=== PATIENT | female | born 1995 | race Two or more races ===

== ENCOUNTER 2021-01-22 15:38 | Observation (INO) | payer SELFPAY ==
[2021-01-22] MEDS ORDERED: IV RINGERS,LACTATED 1000ML 1,000 ML IV PRN (16:15)
[2021-01-22 16:29] LABS: BILIRUBIN,URINE NEGATIVE (NEG); CLARITY,URINE CLEAR; COLOR,URINE YELLOW; NITRITE,URINE NEGATIVE (NEG); PH,URINE 6.5 (<5.0-8.0); PROTEIN,URINE NEGATIVE (NEG-TRACE); UROBILINOGEN,URINE 0.2 mg/dL (0.2 mg/dL)
[2021-01-22 16:50] LABS: BACTERIA,URINE FEW /HPF (0-FEW)
[2021-01-22 16:51] LABS: RBC,URINE 0 /HPF (0-2)
== END 2021-01-22 17:30 | disposition home or self-care (01) ==
LOC: 3 SO LND 15:38
PROVIDERS: ADMIT Obstetrics & Gynecology; ATTEND Obstetrics & Gynecology
DX: O26.892 Other specified pregnancy related conditions, second trimester (principal); R10.9 Unspecified abdominal pain; Z3A.24 24 weeks gestation of pregnancy
CPT/HCPCS: 59025; 81001; G0378; G0379

== ENCOUNTER 2021-05-21 23:56 | Inpatient (IN) | payer SELFPAY ==
[~2021-05-21] VITALS: Ht 160 cm; Wt 75.1 kg
[2021-05-22] MEDS ORDERED: IV RINGERS,LACTATED 1000ML 1,000 ML IV PRN (00:30)
[2021-05-22 01:47] LABS: BILIRUBIN,URINE NEGATIVE (NEG); CLARITY,URINE CLOUDY; COLOR,URINE YELLOW; NITRITE,URINE NEGATIVE (NEG); PH,URINE 6.5 (<5.0-8.0); PROTEIN,URINE NEGATIVE (NEG-TRACE)
[2021-05-22 01:51] LABS: BACTERIA,URINE MANY /HPF (0-FEW); RBC,URINE OCC /HPF (0-2); WBC,URINE 20-40 /HPF (0-4)
[2021-05-22] MEDS ORDERED: BUTORPHANOL 2 MG/ML VIAL. IVP PRN ×2 (02:45)
[2021-05-22] MEDS ORDERED: 0.9 % SODIUM CHLORIDE 10 ML DISP.SYRIN. IV PRN ×2 (02:45→06:30)
[2021-05-22] MEDS ORDERED: ACETAMINOPHEN 325 MG TABLET. PO PRN ×2 (02:45→06:30)
[2021-05-22] MEDS ORDERED: TERBUTALINE 1 MG/ML VIAL. SQ PRN (02:45)
[2021-05-22] MEDS ORDERED: LIDOCAINE 1% PF 30 ML VIAL. INJ PRN (02:45)
[2021-05-22] MEDS ORDERED: OXYTOCIN 30 UNIT/500 ML PREMIX 500 ML IV PRN ×3 (02:45→06:30)
[2021-05-22 02:49] VITALS: BP 115/83
[2021-05-22 03:20] LABS: BASO # 0.1 x10^3/uL (0.0-0.2); BASO % 1 % (0-3); EOS # 0.1 x10^3/uL (0.0-0.7); EOS % 0 % (0-3); HEMATOCRIT 33.5 % (36.0-47.0); HEMOGLOBIN 10.9 g/dL (12.0-15.5); LYMPH # 1.4 x10^3/uL (1.0-4.8); LYMPH % 8 % (24-48); MEAN CORPUSCULAR HEMOGLOBIN 27 pg (25-35); MEAN CORPUSCULAR HGB CONC 33 g/dL (31-37); MEAN CORPUSCULAR VOLUME 82 fL (79-100); MONO % 6 % (0-9); NEUT # 14.7 x10^3/uL (1.8-7.7); NEUT % 85 % (31-73); PLATELET COUNT 272 x10^3/uL (140-400); RED BLOOD COUNT 4.07 x10^6/uL (3.50-5.40); RED CELL DISTRIBUTION WIDTH 13.9 % (11.5-14.5); WHITE BLOOD COUNT 17.3 x10^3/uL (4.0-11.0)
[2021-05-22] MEDS: IV RINGERS,LACTATED 1000ML 1,000 ML IV SCH ×2 (03:21→04:25)
[2021-05-22] MEDS ORDERED: OXYTOCIN PREMIX 30 UNIT/500 ML NS BAG. IV ONE (06:00)
--- NOTE | 2021-05-22 06:15 | PDOC1 ---
BODYWORK THERAPIST H&P Date of Admission: Date of Admission: May 21, 2021 at 23:56 History of Present Illness: EDC: 05/17/21 LMP: 08/10/20 25y @ 40.5 by L=17 presents to L&D with ctxs. On presentation the pt was found to be 3 cm dilated. After a few hours the pt progressed to 4 cm and was subsequently admitted. PMH: Denies PSH: Denies Meds: PNV, DHA, Fe All: NKDA OBHx: TSVD x 2, AB x 1 SH: no tob, no EtOH FH: noncontributory Medications: Meds: Current Medications Medications (Trade) Dose Ordered Sig/Sheri Route PRN Reason Start Time Stop Time Status Last Admin Dose Admin Ringer's Solution 1,000 ml @ 125 mls/hr Q8H IV 05/22/21 02:45 05/22/21 04:25 Butorphanol Tartrate (Stadol) 2 mg PRN Q1HR PRN IVP Severe labor pain 05/22/21 02:45 05/22/21 03:22 Allergies: Coded Allergies: No Known Drug Allergies (Unverified , 01/22/21) Physical Exam: Vital Signs: Vital Signs Date Time Temp Pulse Resp B/P (MAP) Pulse Ox O2 Delivery O2 Flow Rate FiO2 05/22/21 03:22 20 Nasal Cannula 05/22/21 02:49 98.4 105 115/83 (94) 98.4 PE: GENERAL: No apparent distress. Alert and oriented. HEENT: Head normocephalic, atraumatic. NECK: Supple LUNGS: Clear to auscultation. HEART: RRR, S1, S2 present, pulses intact ABDOMEN: Soft, positive bowel sounds. EXTREMITIES: No cyanosis or edema. NEUROLOGIC: Normal speech, normal tone PSYCHIATRIC: Normal affect, normal mood. SKIN: No ulceration. FHT: 140's +acels/no decels/mLTV [place]: 2 min SVE: 8/C/-1 Labs: Laboratory Tests Test 05/22/21 01:30 05/22/21 03:03 05/22/21 03:15 Urine Collection Type Unknown Urine Color Yellow Urine Clarity Cloudy Urine pH 6.5 (<5.0-8.0) Urine Specific [place] 1.015 (1.000-1.030) Urine Protein Negative mg/dL (NEG-TRACE) Urine Glucose (UA) Negative mg/dL (NEG) Urine Ketones (Stick) Negative mg/dL (NEG) Urine Blood Negative (NEG) Urine Nitrite Negative (NEG) Urine Bilirubin Negative (NEG) Urine Urobilinogen Dipstick 1.0 mg/dL (0.2 mg/dL) Urine Leukocyte Esterase Large (NEG) Urine RBC Occ /HPF (0-2) Urine WBC 20-40 /HPF (0-4) Urine Squamous Epithelial Cells Few /LPF Urine Bacteria Many /HPF (0-FEW) Urine Mucus Mod /LPF White Blood Count 17.3 x10^3/uL (4.0-11.0) H Red Blood Count 4.07 x10^6/uL (3.50-5.40) Hemoglobin 10.9 g/dL (12.0-15.5) L Hematocrit 33.5 % (36.0-47.0) L Mean Corpuscular Volume 82 fL (79-100) Mean Corpuscular Hemoglobin 27 pg (25-35) Mean Corpuscular Hemoglobin Concent 33 g/dL (31-37) Red Cell Distribution Width 13.9 % (11.5-14.5) Platelet Count 272 x10^3/uL (140-400) Neutrophils (%) (Auto) 85 % (31-73) H Lymphocytes (%) (Auto) 8 % (24-48) L Monocytes (%) (Auto) 6 % (0-9) Eosinophils (%) (Auto) 0 % (0-3) Basophils (%) (Auto) 1 % (0-3) Neutrophils # (Auto) 14.7 x10^3/uL (1.8-7.7) H Lymphocytes # (Auto) 1.4 x10^3/uL (1.0-4.8) Monocytes # (Auto) 1.0 x10^3/uL (0.0-1.1) Eosinophils # (Auto) 0.1 x10^3/uL (0.0-0.7) Basophils # (Auto) 0.1 x10^3/uL (0.0-0.2) Treponema pallidum Antibody Nonreactive (Nonreactive) SARS-CoV-2 Antigen (Rapid) Negative (NEGATIVE) Laboratory Tests 05/22/21 03:03 Laboratory Tests 05/22/21 03:03 Assessment & Plan: A/P 25y @ 40.5 by L=17 1.) Active labor 2.) Sporadic care 3.) Anemia 0 Hgb 10.9 4.) Marginal cord insertion 5.) TDAP not given 4.) Fetus cat I FHT 5.) GBS unk no risk factors INDIRA JUSTICE MD May 22, 2021 06:15
--- NOTE | 2021-05-22 06:15 | PDOC4 ---
VAGINAL DELIVERY DATE DATE: 05/22/21 TIME: 06:15 TIME Patient delivered a viable female over intact perineum at 0607. Wt 7lb 12oz. Apgars 8/9. Placenta delivered spontaneously, intact with 3VC. No lacerations noted. Good hemostasis noted. 20 U of Pit given with IVF. EBL 200 cc. WEIGHT Weight [ ] INDIRA JUSTICE MD May 22, 2021 06:15
[2021-05-22] MEDS ORDERED: MAG HYDROX/ALUMINUM HYD/SIMETH 30 ML ORAL.SUSP PO PRN (06:30)
[2021-05-22] MEDS ORDERED: oxyCODONE/APAP 5/325 1 TAB TABLET PO PRN (06:30)
[2021-05-22] MEDS ORDERED: SIMETHICONE 80 MG TAB.CHEW PO PRN (06:30)
[2021-05-22] MEDS ORDERED: BENZOCAINE 20% TOPICAL AEROSOL SPRAY 57GM CAN. TP PRN (06:30)
[2021-05-22] MEDS ORDERED: MAGNESIUM HYDROXIDE 2,400 MG/30 ML ORAL.SUSP. PO PRN (06:30)
[2021-05-22] MEDS ORDERED: HYDROCORTISONE 1% TOPICAL OINTMENT 30GM TUBE. TP PRN (06:30)
[2021-05-22] MEDS ORDERED: diphenhydrAMINE HCL 25 MG CAPSULE PO PRN (06:30)
[2021-05-22] MEDS ORDERED: MMR per PROTOCOL. MC PRN (06:30)
[2021-05-22] MEDS ORDERED: ZOLPIDEM 5 MG TABLET. PO PRN (06:30)
[2021-05-22] MEDS ORDERED: PHENYLEPH/MINERAL OIL/PETROLAT RECTAL OINTMENT TUBE. RC PRN (06:30)
[2021-05-22] MEDS ORDERED: TDaP (BOOSTRIX) per PROTOCOL. MC PRN (06:30)
[2021-05-22] MEDS: IBUPROFEN 400 MG TABLET. PO PRN ×2 (08:38→17:39)
[2021-05-22 09:00] VITALS: BP 106/52
[2021-05-22 13:00] VITALS: BP 112/68
--- NOTE | 2021-05-22 14:10 | NUR ---
Out per w/c in stable condition. Baby in car seat placew in backseat rear facing
[2021-05-22 17:40] VITALS: BP 119/81
[2021-05-22 20:00] VITALS: BP 128/80
[2021-05-23 01:54] VITALS: BP 97/65
[2021-05-23] MEDS: IBUPROFEN 400 MG TABLET. PO PRN ×3 (02:01→20:17)
[2021-05-23 05:45] VITALS: BP 112/61
--- NOTE | 2021-05-23 09:54 | PDOC ---
LIABILITY CLAIMS EXAMINER PROGRESS NOTE Date of Service: DATE: 05/23/21 TIME: 09:53 Subjective: Pt with good pain control. Ronald PO. Voiding. Minimal lochia. Objective: Vital Signs: Vital Signs Date Time Temp Pulse Resp B/P (MAP) Pulse Ox O2 Delivery O2 Flow Rate FiO2 05/22/21 09:00 98.2 78 20 106/52 (70) 98.2 05/22/21 20:00 Room Air 05/22/21 20:00 99 Vital Signs Date Time Temp Pulse Resp B/P (MAP) Pulse Ox O2 Delivery O2 Flow Rate FiO2 05/23/21 05:45 98.0 88 20 112/61 (78) 98.0 05/23/21 01:54 99 Room Air Physical Exam: GENERAL: No apparent distress. Alert and oriented. HEENT: Head normocephalic, atraumatic. NECK: Supple LUNGS: Clear to auscultation. HEART: RRR, S1, S2 present, pulses intact ABDOMEN: Soft, positive bowel sounds. EXTREMITIES: No cyanosis or edema. NEUROLOGIC: Normal speech, normal tone PSYCHIATRIC: Normal affect, normal mood. SKIN: No ulceration. FFNT below umb No C/C/E Assessment & Plan: A/P 25y PPD #1 s/p 1.) PP doing well 2.) Sporadic care 3.) Anemia - Hgb 10.9 -> pending 4.) TDAP not given in the office 5.) Cont PP care INDIRA JUSTICE MD May 23, 2021 09:54
[2021-05-23 10:09] LABS: HEMATOCRIT 29.1 % (36.0-47.0); HEMOGLOBIN 9.3 g/dL (12.0-15.5); RED BLOOD COUNT 3.48 x10^6/uL (3.50-5.40); RED CELL DISTRIBUTION WIDTH 13.8 % (11.5-14.5); WHITE BLOOD COUNT 14.9 x10^3/uL (4.0-11.0)
[2021-05-23 10:30] VITALS: BP 121/85
[2021-05-23] MEDS: FERROUS SULFATE 325 MG TABLET. PO SCH ×2 (12:23→20:17)
[2021-05-23] MEDS: PRENATAL MULTIVITAMIN TABLET. PO SCH (12:23)
[2021-05-23] MEDS: DOCUSATE SODIUM 100 MG CAPSULE. PO PRN ×2 (12:23→20:17)
[2021-05-23 17:53] VITALS: BP 108/73
[2021-05-24 00:06] VITALS: BP 106/61
[2021-05-24] MEDS: IBUPROFEN 400 MG TABLET. PO PRN (05:18)
[2021-05-24 05:29] VITALS: BP 101/63
[2021-05-24 08:33] VITALS: BP 103/68
[2021-05-24] MEDS: PRENATAL MULTIVITAMIN TABLET. PO SCH (08:49)
[2021-05-24] MEDS: FERROUS SULFATE 325 MG TABLET. PO SCH (08:49)
[2021-05-24] MEDS ORDERED: DIPHTH,PERTUSS(ACELL),TET TOX 0.5 ML DISP.SYRIN. VAX IM ONE (09:00)
[2021-05-24] MEDS ORDERED: FLU VACC QUAD 21-22 (6MOS+) PF 0.5 ML SYRINGE. VAX IM ONE (09:00)
[2021-05-24] MEDS ORDERED: DOCU-109 PO (09:10)
[2021-05-24] MEDS ORDERED: FERR325T14 PO (09:10)
[2021-05-24] MEDS ORDERED: IBUP-1060 PO (09:10)
--- NOTE | 2021-05-24 09:24 | PDOC ---
LOGGING EQUIPMENT MECHANIC PROGRESS NOTE Date of Service: DATE: 05/24/21 TIME: 09:23 Subjective: Pt with good pain control. Ronald PO. Voiding. Minimal lochia. Objective: Vital Signs: Vital Signs Date Time Temp Pulse Resp B/P (MAP) Pulse Ox O2 Delivery O2 Flow Rate FiO2 05/23/21 10:30 98.0 84 20 121/85 (97) 98.0 05/23/21 17:53 96 05/23/21 20:52 Room Air Vital Signs Date Time Temp Pulse Resp B/P (MAP) Pulse Ox O2 Delivery O2 Flow Rate FiO2 05/24/21 08:33 98.8 70 20 103/68 (80) 98.8 05/24/21 08:29 Room Air 05/24/21 05:29 98 Labs: Laboratory Tests Test 05/23/21 09:30 White Blood Count 14.9 x10^3/uL (4.0-11.0) H Red Blood Count 3.48 x10^6/uL (3.50-5.40) L Hemoglobin 9.3 g/dL (12.0-15.5) L Hematocrit 29.1 % (36.0-47.0) L Mean Corpuscular Volume 84 fL (79-100) Mean Corpuscular Hemoglobin 27 pg (25-35) Mean Corpuscular Hemoglobin Concent 32 g/dL (31-37) Red Cell Distribution Width 13.8 % (11.5-14.5) Platelet Count 246 x10^3/uL (140-400) Laboratory Tests 05/23/21 09:30 Laboratory Tests 05/23/21 09:30 Physical Exam: GENERAL: No apparent distress. Alert and oriented. HEENT: Head normocephalic, atraumatic. NECK: Supple LUNGS: Clear to auscultation. HEART: RRR, S1, S2 present, pulses intact ABDOMEN: Soft, positive bowel sounds. EXTREMITIES: No cyanosis or edema. NEUROLOGIC: Normal speech, normal tone PSYCHIATRIC: Normal affect, normal mood. SKIN: No ulceration. FFNT below umb No C/C/E Assessment & Plan: A/P 25y PPD #2 s/p 1.) PP doing well 2.) Sporadic care 3.) Anemia - Hgb 10.9 -> 9.3 4.) TDAP and Flu given today 5.) D/c home INDIRA JUSTICE MD May 24, 2021 09:24
--- NOTE | 2021-05-24 10:08 | DS ---
DATE OF DISCHARGE: 05/24/2021 ADMISSION DIAGNOSES: 1. Intrauterine at 40 weeks and 5 days by LMP equal to a 17-week ultrasound. 2. Active labor. 3. Sporadic care. 4. Anemia. 5. Marginal cord insertion. 6. Group B Streptococcus unknown with no risk factors. DISCHARGE DIAGNOSES: 1. Intrauterine at 40 weeks and 5 days by LMP equal to a 17-week ultrasound. 2. Active labor. 3. Sporadic care. 4. Anemia. 5. Marginal cord insertion. 6. Group B Streptococcus unknown with no risk factors. PROCEDURE: Spontaneous vaginal delivery. BRIEF HOSPITAL COURSE: The patient is a 25-year-old 4, para 2-0-1-2, presented to Labor and Delivery at 40 weeks and 5 days by LMP equal to 17-week ultrasound with contractions. On presentation, the patient was found to be 3 cm. Over the course of an hour, the patient progressed to 4 cm and was subsequently admitted. The patient progressed well and ultimately delivered by vaginal delivery early that morning. See delivery note for full detail. By day #2, the patient was meeting all discharge criteria and was subsequently discharged home. Of note, the patient's hemoglobin on admission was 10.9 and after delivery, it was found to be 9.3. DISCHARGE INSTRUCTIONS: The patient was told not to lift anything greater than 20 pounds, have pelvic rest for 6 weeks. CALL IF: The patient was to call if she had fevers, chills, nausea, vomiting, abdominal pain or any additional questions or concerns. FOLLOWUP APPOINTMENT: The patient is to follow up on 07/03/2021 at 9:40 a.m. for a visit. DISCHARGE MEDICATIONS: The patient was given a prescription for Motrin 800 mg, 30 pills; Colace 100 mg, 30 pills and ferrous sulfate 325 mg, [address]: Hernandez TID: [id number]
--- NOTE | 2021-05-24 10:30 | NUR ---
Pt. and FOB were given verbal and written discharge instructions per oil tester services. Pt. verbalized understanding of all instructions related to self care, medication, and follow up.
--- NOTE | 2021-05-24 11:40 | NUR ---
Pt. and NB were escorted to unit exit. NB was placed in a secure carseat per FOB.
== END 2021-05-24 11:40 | disposition home or self-care (01) | DRG 807 ==
LOC: 3 SO LND 23:56 → OBSVTOIN 23:56 → 3 SO LND 05-22 09:00
PROVIDERS: ADMIT Obstetrics & Gynecology; ATTEND Obstetrics & Gynecology
PROC: 10E0XZZ Delivery of Products of Conception, External Approach (ICD-10-PCS; principal; 2021-05-22)
PROC: 3E02340 Introduction of Influenza Vaccine into Muscle, Percutaneous Approach (ICD-10-PCS; 2021-05-24)
PROC: 3E0234Z Introduction of Serum, Toxoid and Vaccine into Muscle, Percutaneous Approach (ICD-10-PCS; 2021-05-24)
DX: O99.02 Anemia complicating childbirth (principal); Z37.0 Single live birth; O43.123 Velamentous insertion of umbilical cord, third trimester; Z20.822 Contact with and (suspected) exposure to COVID-19; Z3A.40 40 weeks gestation of pregnancy; Z23 Encounter for immunization
CPT/HCPCS: 36415; 81001; 85025; 85027; 86592; 86850; 86900; 86901; 87086; 87186; 87426; 90471; 90686; 90715; G0378; J0595; J2590; J7120; U0003; U0005